=== PATIENT | male | born 1985 | race Two or more races ===

== ENCOUNTER 2025-01-26 15:51 | Emergency (ER) | payer OTHER ==
[~2025-01-26] VITALS: Ht 165.1 cm; Wt 85.0 kg
--- NOTE | 2025-01-26 16:49 | DVH ---
EXAM: CT HEAD WITHOUT CONTRAST HISTORY: jaw pain COMPARISON: None TECHNIQUE: Axial images of the head were obtained and reformatted in coronal and sagittal planes. All CT scans at this medical facility are performed using dose modulation techniques as appropriate t o a performed exam including the following: Automated exposure control was utilized; adjustment of th e MA and/or KV according to patient size; and use of iterative reconstruction technique. CT Dose: CTDI volume is 66 mGy. Dose-length product is 2467 mGy*cm FINDINGS: There is no evidence of acute intracranial hemorrhage, mass, mass effect midline shift. There is no h ydrocephalus or extra-axial fluid collection. Madison-white matter differentiation is maintained. The visualized paranasal sinuses and mastoid air cells are clear. The calvarium is intact. IMPRESSION: 1. No acute intracranial process. HS:Y
--- NOTE | 2025-01-26 17:10 | DVH ---
CT MAXILLOFACIAL WITHOUT Indication: jaw pain EXAM DATE: 01/26/2025 04:14 PM COMPARISON: None TECHNIQUE: CT of the maxillofacial bones without intravenous contrast. RADIATION DOSE: CTDIvol: 66.97 mGy, DLP: 2467.17 mGy*cm FINDINGS: Mastoids well pneumatized. Mucosal thickening of the bilateral maxillary sinuses. No acute fracture. Bilateral mandibular molar periapical lucencies. Mild bilateral temporomandibular joint arthrosis. Orbits, retrobulbar spaces unremarkable. IMPRESSION: 1. No facial region fracture identified. 2. Mild bilateral temporomandibular joint arthrosis. 3. Bilateral mandibular periapical lucencies. 4. Maxillary sinus disease.
[2025-01-26] MEDS: KETOROLAC TROMETH 60MG/2ML VIAL IM ONE (17:30)
--- NOTE | 2025-01-26 17:30 | ED.PDOC ---
Eye-HPI HPI Comments HPI: 39 y/o M, presents to the ED for CC of face pain. Patient states, he has been experiencing jaw and face pain onset, 1400 today (01/26/25). Patient relays following having a drink, he sneezed hearing a "pop" to his left jaw. Upon arrival to the ED, patient complains of pain to the left mandibular angle worsening when opening or closing his mouth. Patient denies physical fight, trauma, fall, or injury. No other symptoms or modifying factors present at this time. Vitals Temperature: 97.8 Respiratory rate: 18 SpO2: 96% Heart rate: 69 Blood pressure: 132/78 Past Medical History: DENIES Past Surgical History: DENIES Social History: DENIES ANY AJAY: HPI: Poor Historian. Denies any fall or trauma or injury. REVIEW OF SYSTEMS: CONSTITUTIONAL: Denies acute: fever, diaphoresis, chills, generalized weakness. HEAD: Denies acute: headache, photophobia Eyes: Denies acute: Double vision, vision loss, eye pain, eye discharge. EARS: Denies acute: tinnitus, hearing loss, ear discharge, ear pain, THROAT: Denies acute: sore throat, swelling, difficulty swallowing , pain with swallowing, change in voice. NECK: Denies acute: neck swelling, stiff neck. HEART: Denies acute : chest pain, palpitations, LUNGS: Denies acute: SOB, wheezing, cough, hemoptysis ABDOMEN: Denies acute: abdominal pain, Nausea, Vomiting, diarrhea, melena , hematemesis, hematochezia SKIN: Denies acute: rash, redness, lesions, itchiness. EXTREMITIES: Denies acute: calf pain, numbness, tingling, weakness, denies pain in extremity. Denies acute: Low back pain. Neuro: Denies acute: focal neurological deficit, motor or sensory focal neurological deficit, tremors, seizure like activity, confusion, dizziness, change in mental status, loss of bowel or bladder function, cauda equina like symptoms. : Denies acute: dysuria, hematuria, flank pain, increase in urinary frequency. PSYCH: Denies acute: hallucination, suicidal ideation, homicidal ideation. PHYSICAL EXAM: General: ----mild ----acute distress, awake and alert. Head: normocephalic, atraumatic. Neck: supple, trachea is midline, no swelling. Normal range of motion Throat: Normal phonation. No erythema, no exudates, poor dentition, no swelling, no obstruction, Patient points specifically to a focal point behind his right mandibular angle that is tender to palpation. No swelling or erythema or palpable masses appreciated. Pain is worse with fully opening the mouth. Eyes:, no erythema, no purulent discharge, no proptosis, no icterus. Heart: regular rate, regular rhythm, no significant murmur appreciated. Lungs: no apparent respiratory distress, Able to speak in full sentences. No wheezing, no rhonchi, no crackles. No stridors Clear to auscultation bilaterally. Abdomen: non tender to palpation, non distended, soft, no guarding, no rebound, + bowel sounds. Neuro: Awake, Alert, oriented to name, self, situation, follows commands GCS=15. Speech is normal. Skin: no petechia, no purpura, no cyanosis, non-pale, not jaundice. Lower extremities: --no - Pitting edema no deformity, no focal swelling, no calf TTP. Makes eye contact. moves all four extremities. Face: no apparent facial droop. Ambulating in the ED independently. PERRLA, EOM-I CN 2-12 are grossly intact, No nystagmus. No nuchal rigidity, Kernig's sign, Brudzinski's sign, no meningeal signs. ED COURSE: Chief Complaint: Face pain Time Seen by MD: 17:22 Reviewed Notes: Nurses Notes, Medications, Allergies Allergies: Coded Allergies: NO KNOWN ALLERGIES (Unverified , 01/26/25) Information Source: Patient Mode of Arrival: Ambulatory Duration: Since onset Prehospital treatment: None Lids: Normal Conjunctiva: Normal Cornea: Normal Pupils: Normal EOM: Normal Fundus: Normal Slit lamp exam: Normal Anterior chamber: Normal Mouth: Normal ENT Ear Exam: Normal Nose: Normal Sinuses: Normal Oropharynx: Normal Onset: Spontaneous Throat Exposed to: None History of: None Last Tetanus: Unknown Modifying factors: Nothing Associated signs and symptoms: None Was a procedure done? Was a procedure done?: No EENT DIFF Eye: Other Ear: Dental, Pharyngitis, TMJ Syndrome Mouth: Other (ORAL INFECTION, MANDIBULAR INFECTION) Sore Throat: Epiglottitis, Hand Foot Mouth Disease, Herpangina, Herpetic Stomatitis, Mononeucleosis, Fabien's Angina, Peritonsillar Abscess, Peritonsillar Cellulitis, Pharyngitis, Diptheria, Streptococcal, Viral Pharyngitis, URI X-Ray, Labs, Meds, VS Vital Signs Date Time Temp Pulse Resp B/P (MAP) Pulse Ox O2 Delivery O2 Flow Rate FiO2 01/26/25 18:11 83 16 98 Room Air 01/26/25 18:11 98.3 83 16 112/69 (83) 98 98.3 01/26/25 16:12 97.8 69 18 132/78 (96) 96 97.8 Current Medications Medications (Trade) Dose Ordered Sig/Joanna Route Start Time Stop Time Status Last Admin Ketorolac Tromethamine (Toradol Injection) 30 mg ONCE ONCE IM 01/26/25 17:30 01/26/25 17:31 DC 01/26/25 17:30 Acetaminophen/ Hydrocodone Bitart ([place] 5/325MG Tab) 1 tab ONCE ONCE PO 01/26/25 17:30 01/26/25 17:31 DC 01/26/25 18:11 [place] [id number] Ph: [phone] DIAGNOSTIC IMAGING Diagnostic Imaging Report : [id number] Signed PATIENT: RAFA MOSS ACCT: [id number] UNIT: [id number] : 1985 LOC: ER ROOM / BED: / AGE / SEX: 39 / M ADM STATUS: REG ER SERVICE 1614 ORDERING PHYSICIAN: BRIGID OROZCO DO PROCEDURE(s): HWOCT - HEAD WITHOUT CONTRAST REASON: jaw pain ORDER NUMBER(s): [id number], ACCESSION NUMBER(s): [id number] EXAM: CT HEAD WITHOUT CONTRAST HISTORY: jaw pain COMPARISON: None TECHNIQUE: Axial images of the head were obtained and reformatted in coronal and sagittal planes. All CT scans at this medical facility are performed using dose modulation techniques as appropriate to a performed exam including the following: Automated exposure control was utilized; adjustment of the MA and/or KV according to patient size; and use of iterative reconstruction technique. CT Dose: CTDI volume is 66 mGy. Dose-length product is 2467 mGy*cm FINDINGS: There is no evidence of acute intracranial hemorrhage, mass, mass effect midline shift. There is no hydrocephalus or extra-axial fluid collection. Madison-white matter differentiation is maintained. The visualized paranasal sinuses and mastoid air cells are clear. The calvarium is intact. IMPRESSION: 1. No acute intracranial process. HS:Y ATED BY: PEPE ANDREWS MD DICTATED DATE/TIME: 01/26/251646 SIGNED BY: PEPE ANDREWS MD SIGNED DATE/TIME: 01/26/251646 CC: [place] [id number] Ph: [phone] DIAGNOSTIC IMAGING Diagnostic Imaging Report : [id number] Signed PATIENT: RAFA MOSS ACCT: [id number] UNIT: [id number] : 1985 LOC: ER ROOM / BED: / AGE / SEX: 39 / M ADM STATUS: REG ER SERVICE 1614 ORDERING PHYSICIAN: BRIGID OROZCO DO PROCEDURE(s): FAC2C - MAXILLOFACIAL WITHOUT REASON: jaw pain ORDER NUMBER(s): [id number], ACCESSION NUMBER(s): [id number] CT MAXILLOFACIAL WITHOUT Indication: jaw pain EXAM DATE: 01/26/2025 04:14 PM COMPARISON: None TECHNIQUE: CT of the maxillofacial bones without intravenous contrast. RADIATION DOSE: CTDIvol: 66.97 mGy, DLP: 2467.17 mGy*cm FINDINGS: Mastoids well pneumatized. Mucosal thickening of the bilateral maxillary s inuses. No acute fracture. Bilateral mandibular molar periapical lucencies. Mild bilateral temporomandibular joint arthrosis. Orbits, retrobulbar spaces unremarkable. IMPRESSION: 1. No facial region fracture identified. 2. Mild bilateral temporomandibular joint arthrosis. 3. Bilateral mandibular periapical lucencies. 4. Maxillary sinus disease. ATED BY: CHELSI FREEMAN MD DICTATED DATE/TIME: 01/26/251707 SIGNED BY: CHELSI FREEMAN MD SIGNED DATE/TIME: 01/26/251707 CC: Time of 1ST Reevaluation: 17:55 Reevaluation 1ST: Unchanged Patient Education/Counseling: Diagnosis, Treatment Family Education/Counseling: No Family Present Comments Patient presented with the above HPI.---right jaw pain---workup was initiated. patient was found with the above mentioned diagnosis. the following medications were ordered: please refer to order lists of meds and tests obtained by myself Dr. Orozco. Patient ED course and VS have been stabilized. Patient has been reassessed in the ED and remained in a stable condition. Pertinent incidental findings were discussed with the patient and/or family. Patient/family voices understanding and is agreeable with plan. Patient has been observed in the ED adequate length of time to insure improvement/stability. Escalation of care considered: Consideration of escalation to observation or admission Patient was DISCHARGED home in a stable condition. All the reports of any imaging studies that were ordered by myself were reviewed by myself. Departure 1 Departure Time of Disposition: 17:43 Impression: Primary Impression: Sprain of jaw, right side, initial encounter Disposition: 01 HOME / SELF CARE / HOMELESS Condition: Stable Additional Instructions: Additional instructions: You MUST follow-up with your primary care/family doctor in 1 to 2 days. If you are unable to see your primary care/family doctor, please return to our emergency room for re-assessment and re-evaluation in 1 to 2 days. Return to the emergency room here in our facility or to the nearest ER [facility] if your symptoms change or worsen. CONSULTATIONS: you MUST Follow-up for consultation as soon as possible with: --ENT and dentistry doctor in 1-2 days. Please call for appointment. You MUST call the consultants office yourself to make an appointment. You may need to arrange that through your insurance and/or your primary/family doctor. If you are unable to see the configuration consultant in 1 to 2 days, you must return to our emergency room (or any other ER of your choice) for re-assessment and re- evaluation. Adequate fluid hydration. Soft mechanical food to chew. Below is a copy of your radiological report for follow up: [address] [address] Ph: [phone] DIAGNOSTIC IMAGING Diagnostic Imaging Report : [id number] Signed PATIENT: RAFA MOSS ACCT: [id number] UNIT: [id number] : 1985 LOC: ER ROOM / BED: / AGE / SEX: 39 / M ADM STATUS: REG ER SERVICE 13 ORDERING PHYSICIAN: BRIGID OROZCO DO PROCEDURE(s): HWOCT - HEAD WITHOUT CONTRAST REASON: jaw pain ORDER NUMBER(s): [id number], ACCESSION NUMBER(s): [id number] EXAM: CT HEAD WITHOUT CONTRAST HISTORY: jaw pain COMPARISON: None TECHNIQUE: Axial images of the head were obtained and reformatted in coronal and sagittal planes. All CT scans at this medical facility are performed using dose modulation techniques as appropriate to a performed exam including the following: Automated exposure control was utilized; adjustment of the MA and/or KV according to patient size; and use of iterative reconstruction technique. CT Dose: CTDI volume is 66 mGy. Dose-length product is 2467 mGy*cm FINDINGS: There is no evidence of acute intracranial hemorrhage, mass, mass effect midline shift. There is no hydrocephalus or extra-axial fluid collection. Madison-white matter differentiation is maintained. The visualized paranasal sinuses and mastoid air cells are clear. The calvarium is intact. IMPRESSION: 1. No acute intracranial process. HS:Y ATED BY: PEPE ANDREWS MD DICTATED DATE/TIME: 01/26/251646 SIGNED BY: PEPE ANDREWS MD SIGNED DATE/TIME: 01/26/251646 CC: [place] [address] Ph: [phone] DIAGNOSTIC IMAGING Diagnostic Imaging Report : [id number] Signed PATIENT: RAFA MOSS ACCT: [id number] UNIT: [id number] : 1985 LOC: ER ROOM / BED: / AGE / SEX: 39 / M ADM STATUS: REG ER SERVICE 13 ORDERING PHYSICIAN: BRIGID OROZCO DO PROCEDURE(s): FAC2C - MAXILLOFACIAL WITHOUT REASON: jaw pain ORDER NUMBER(s): [id number], ACCESSION NUMBER(s): [id number] CT MAXILLOFACIAL WITHOUT Indication: jaw pain EXAM DATE: 01/26/2025 04:14 PM COMPARISON: None TECHNIQUE: CT of the maxillofacial bones without intravenous contrast. RADIATION DOSE: CTDIvol: 66.97 mGy, DLP: 2467.17 mGy*cm FINDINGS: Mastoids well pneumatized. Mucosal thickening of the bilateral maxillary sinuses. No acute fracture. Bilateral mandibular molar periapical lucencies. Mild bilateral temporomandibular joint arthrosis. Orbits, retrobulbar spaces unremarkable. IMPRESSION: 1. No facial region fracture identified. 2. Mild bilateral temporomandibular joint arthrosis. 3. Bilateral mandibular periapical lucencies. 4. Maxillary sinus disease. ATED BY: CHELSI FREEMAN MD DICTATED DATE/TIME: 01/26/251707 SIGNED BY: CHELSI FREEMAN MD SIGNED DATE/TIME: 01/26/251707 CC: Discharged With: Self Heart Score Heart Score: Heart Score Response (Comments) Value History N/A 0 EKG N/A 0 Age N/A 0 Risk Factors N/A 0 Troponin N/A 0 Total 0 I personally scribed for BRIGID OROZCO DO ([email or web address]) on 01/26/25 at 17:30. Electronically submitted by Judith Archibald ([email or web address]). I personally scribed for BRIGID OROZCO DO ([email or web address]) on 01/26/25 at 17:33. Electronically submitted by Judith Archibald ([email or web address]). I personally scribed for BRIGID OROZCO J DO ([email or web address]) on 01/26/25 at 17:34. Electronically submitted by Judith Archibald ([email or web address]). I personally scribed for BRIGID OROZCO DO ([email or web address]) on 01/26/25 at 17:42. Elect ronically submitted by Judith Archibald ([email or web address]). BRIGID OROZCO DO Jan 26, 2025 17:30
[2025-01-26 18:11] VITALS: BP 112/69; PULSE 83; RESP 16; TEMP 98.3; O2SAT 98
[2025-01-26] MEDS: HYDROcodone-ACET 5/325MG TAB PO ONE (18:11)
== END 2025-01-26 18:17 | disposition home or self-care (01) ==
LOC: ER 15:51
DX: S03.41XA Sprain of jaw, right side, initial encounter (principal); X50.1XXA Overexertion from prolonged static or awkward postures, initial encounter; Y93.89 Activity, other specified; Y92.89 Other specified places as the place of occurrence of the external cause; Y99.8 Other external cause status
CPT/HCPCS: 70450; 70486; 96372; 99285; J1885